=== PATIENT | male | born 1960 | race Caucasian/White ===

== ENCOUNTER 2025-03-20 16:16 | Emergency (ER) | payer MEDICAID ==
[~2025-03-20] VITALS: Ht 180.3 cm; Wt 113.0 kg
[2025-03-20 16:22] VITALS: O2SAT 97
[2025-03-20 17:56] LABS: BASOPHILS % 0.6 % (0.0-2.0); EOSINOPHILS % 2.6 % (0.0-5.0); HEMATOCRIT. 41.6 % (42.0-52.0); HEMOGLOBIN. 14.3 g/dL (14.0-18.0); LYMPHOCYTES % 22.4 % (20.0-50.0); MEAN PLATELET VOLUME 9.9 fl (7.4-10.4); MONOCYTES % 6.3 % (2.0-8.0); NEUTROPHILS % 68.1 % (40.0-76.0); PLATELET 185 x1000/uL (130-400); RED BLOOD CELL COUNT 4.63 mill/uL (4.7-6.1); RED CELL DISTRIBUTION WIDTH 13.0 % (11.6-14.6)
[2025-03-20 18:06] LABS: CREATININE 1.1 mg/dL (0.6-1.3); INR 1.0; UREA NITROGEN BLOOD 10 mg/dL (9-23)
[2025-03-20 18:07] LABS: PROTEIN TOTAL 7.5 g/dL (6.0-8.3); TROPONIN I HIGH SENSITIVITY 40 ng/L (3.0-53)
[2025-03-20 18:08] LABS: ASPARTATE AMINOTRANSFERASE 15 IU/L (<34); BILIRUBIN DIRECT 0.2 mg/dL (<=3.0); BILIRUBIN TOTAL 1.0 mg/dL (0.1-1.0)
[2025-03-20 19:17] VITALS: BP 135/78; PULSE 94; RESP 18; TEMP 37.1; O2SAT 98
[2025-03-20 20:41] LABS: TROPONIN I HIGH SENSITIVITY 172 ng/L (3.0-53)
== END 2025-03-20 19:19 | disposition left against medical advice (07) ==
LOC: ER 16:16 → CMPBEDREQ 20:04
DX: E11.9 Type 2 diabetes mellitus without complications (principal); Z53.29 Procedure and treatment not carried out because of patient's decision for other reasons
CPT/HCPCS: 36415; 71045; 80048; 80076; 84484; 85025; 93005; 99285